=== PATIENT | male | born 1980 | race Caucasian/White ===

== ENCOUNTER 2025-06-25 09:29 | Outpatient (CLI) | payer MEDICAID ==
--- NOTE | 2025-06-25 15:51 | PROCEDURE NOTE ---
Procedure Note Providers to CC ~ Interpretation: [place] EEG Note # Demographics Type of EEG Read: - Routine EEG - video Patient Location: Outpatient First Name: Fernandez Last Name: Ramakrishna Date of : 1980 Age: 44 Gender: Male Facility: [facility] Time of Initial Page (): 06/25/2025 10:32 First Contact with Site ( Time): 06/25/2025 10:32 # EEG Interpretation Start Time of EEG Read (): 06/25/2025 10:01 Stop Time of EEG Read (): 06/25/2025 10:26 Duration: 0h 25m Technical Details: - The EEG electrodes were placed using the standard International 10-20 system of electrode placement. Video and an accessory EKG lead were used during the course of this study. - This study was recorded using the [employer] EEG software Indication: - seizure # Description Photic Stimulation: Performed Hyperventilation: performed Phases Captured: - awake - drowsy Symmetry: symmetric Posterior Dominant Rhythm: - present, attenuates on eye opening 10 Hz Amplitude: normal Reactivity: yes Variability: yes Continuity: continuous # Abnormalities Stimulation: - photic stimulation does NOT cause abnormalities - hyperventilation does NOT cause abnormalities Epileptiform Abnormalities: - NOT present Focal Slowing: no Seizure: - NOT present # Impression Impression: normal # Clinical Correlation Clinical Correlation: A normal EEG does not exclude nor support the diagnosis of epilepsy. # Demographics First Name: Fernandez Last Name: Ramakrishna Facility: [facility] JESSE LOPEZ MD Jun 25, 2025 15:51
== END 2025-06-25 23:59 | disposition home or self-care (01) ==
LOC: RAD 09:29
PROVIDERS: ATTEND Nurse Practitioner Family
DX: G40.911 Epilepsy, unspecified, intractable, with status epilepticus (principal)
CPT/HCPCS: 95816